=== PATIENT | male | born 1930 | race Caucasian/White ===

== ENCOUNTER → 2016-07-22 | Outpatient (CLI) | payer OTHER | LOC: FIMAGING 15:01 | PROVIDERS: ATTEND Internal Medicine | DX: Z09 Encounter for follow-up examination after completed treatment for conditions other than malignant neoplasm (principal); Z98.890 Other specified postprocedural states; J90 Pleural effusion, not elsewhere classified; I51.7 Cardiomegaly; J98.4 Other disorders of lung; I70.0 Atherosclerosis of aorta ==

== ENCOUNTER 2016-09-03 16:14 | Inpatient (IN) | payer OTHER ==
--- NOTE | 2016-09-03 16:37 | EDPHY ---
H & P Time Seen by Provider: 09/03/16 16:35 HPI/ROS: CHIEF COMPLAINT: Constipation HISTORY OF PRESENT ILLNESS: This patient is an 86 year old male who presents to the Emergency Department complaining that he has been unable to pass a bowel movement "for at least four days." He reports one episode of associated abdominal pain two nights prior to arrival, severe enough to wake him from sleep , which lasted for approximately one hour before subsiding on its own. Today, he has no gastrointestinal complaints apart from constipation. He also reports that he feels an abnormal sensation in his chest that he attributes to his history of atrial fibrillation. He states his legs are more swollen than usual. He denies lightheadedness, shortness of breath, headache, palpitations, or any additional complaints. Cardiac history also includes congestive heart failure, and coronary artery disease with previous CABG. He has been taking his metoprolol as prescribed. He was previously took Eliquis, Plavix, and Aspirin but was taken off of these due to excessive bleeding. He reports no anticoagulant use at this time. REVIEW OF SYSTEMS: Constitutional: No fever, no chills Eyes: No visual changes ENT: No sore throat Respiratory: No cough, no shortness of breath Cardiac: +Chest discomfort Gastrointestinal: +Constipation, +abdominal pain resolved, no nausea or vomiting Genitourinary: No hematuria, no dysuria Musculoskeletal: +bilateral leg swelling Skin: No rash Neurological: No headache, no numbness, no weakness Psychiatric: No depression Past Medical/Surgical History: CHF (3L O2 at home), atrial fibrillation, hypertension, CAD with prior CABG, hyperlipidemia, GERD, anxiety, depression. Followed by Dr. Carpenter, cardiology. Social History: Lives independently. Never smoked. . Smoking Status: Never smoked Physical Exam: General Appearance: Alert, no distress, on O2 4l by NC Eyes: Pupils equal and round, no conjunctival pallor or injection ENT, Mouth: Hearing impaired, mucous membranes moist Neck: Normal inspection Back: Ecchymosis Respiratory: Rales at the bases Cardiovascular: Irregularly irregular tachycardia Gastrointestinal: Abdomen is soft and non-tender Rectal: Minimal brown stool Neurological: A&O, nonfocal, normal gait Skin: Warm and dry, no rash Extremities: Nontender, 2+ pedal edema bilaterally Psychiatric: Mood and affect normal Constitutional: Initial Vital Signs Temperature (C) 36.4 C 09/03/16 16:21 Heart Rate 114 H 09/03/16 16:21 Respiratory Rate 16 09/03/16 16:21 Blood Pressure 102/83 H 09/03/16 16:21 O2 Sat (%) 92 09/03/16 16:21 O2 Delivery Mode Nasal Cannula O2 (L/minute) 3 Allergies/Adverse Reactions: acetaminophen [From Percocet] Allergy (Verified 09/24/15 10:04) amiodarone Allergy (Verified 10/24/15 21:01) Anaphylaxis hydrocodone bitartrate [From Vicodin] Allergy (Verified 09/24/15 10:04) oxycodone HCl [From Percocet] Allergy (Verified 09/24/15 10:04) Home Medications: Medication Instructions Recorded Cholecalciferol Vit D3 [Vitamin D3 2,000 units PO HS 09/03/16 (*)] Citalopram [CeleXA] 20 mg PO DAILY 09/03/16 Diltiazem HCl [Diltiazem 24Hr Cd] 180 mg PO HS 09/03/16 Furosemide [Lasix 80 MG (*)] 80 mg PO DAILY 09/03/16 Metoprolol Succinate Xr [Toprol Xl 50 mg PO DAILY 09/03/16 50 mg (*)] Multivitamins [Multivitamin (*)] 1 each PO DAILY 09/03/16 Simvastatin [Zocor] 20 mg PO HS 09/03/16 Spironolactone [Aldactone 25 MG 25 mg PO DAILY@1200 09/03/16 (*)] Medical Decision Making - Diagnostics Imaging Results: Imaging Impressions Chest X-Ray 09/03/16 16:54 Impression: Stable x2 months. ED Course/Re-evaluation: This 86 year old male complains of constipation over the past four days. He describes one episode of abdominal pain two nights ago but otherwise has not had any associated symptoms. On exam, he has no abd tenderness and minimal brown stool in the rectum. More concerning, he has rapid Afib, with a HR 120's. He has 2+ pedal edema bilaterally and increased SOB. He is regularly on 3L O2 at home and is 92% on 3L in the ED. RN will administer enema to treat the patient's constipation. 10mg IV Diltiazem administered for a fib. HR 100-110 after IV diltiazem. Diltiazem ip ordered. Labs obtained: NT-proBNP elevated at 4550 as compared to 2740 on 06/02/2016. c/w pulmonary edema.Lasix 40mg IV ordered. d/w pt's son. 1759: Consultation with Dr. Martin, hospitalist, who accepts admission. This patient utilized 35 minutes of critical care time exclusive of unbundled procedures. Differential Diagnosis: The differential diagnosis for the patient's constipation included but was not limited to medication side effect, idiopathic slow transit constipation, irritable bowel syndrome, or bowel obstruction. The differential diagnosis for the patient's chest discomfort included but was not limited to atrial fibrillation, myocardial ischemia, pleural inflammation, and pulmonary infectious causes. - Data Points Laboratory Results: Laboratory Results 09/03/16 16:55 09/03/16 16:55 09/03/16 09/03/16 16:55 16:55 WBC 8.03 10^3/uL 10^3/uL (3.80-9.50) RBC 4.21 10^6/uL L 10^6/uL (4.40-6.38) Hgb 13.5 g/dL L g/dL (13.7-17.5) Hct 41.1 % % (40.0-51.0) MCV 97.6 fL fL (81.5-99.8) MCH 32.1 pg pg (27.9-34.1) MCHC 32.8 g/dL g/dL (32.4-36.7) RDW 15.1 % % (11.5-15.2) Plt Count 193 10^3/uL 10^3/uL (150-400) MPV 9.9 fL fL (8.7-11.7) Neut % (Auto) 81.6 % H % (39.3-74.2) Lymph % (Auto) 6.8 % L % (15.0-45.0) [place]row % (Auto) 10.3 % % (4.5-13.0) Eos % (Auto) 0.4 % L % (0.6-7.6) Baso % (Auto) 0.5 % % (0.3-1.7) Nucleat RBC Rel Count 0.0 % % (0.0-0.2) Absolute Neuts (auto) 6.55 10^3/uL H 10^3/uL (1.70-6.50) Absolute Lymphs (auto) 0.55 10^3/uL L 10^3/uL (1.00-3.00) Absolute Monos (auto) 0.83 10^3/uL H 10^3/uL (0.30-0.80) Absolute Eos (auto) 0.03 10^3/uL 10^3/uL (0.03-0.40) Absolute Basos (auto) 0.04 10^3/uL 10^3/uL (0.02-0.10) Absolute Nucleated RBC 0.00 10^3/uL 10^3/uL (0-0.01) Immature Gran % 0.4 % % (0.0-1.1) Immature Gran # 0.03 10^3/uL 10^3/uL (0.00-0.10) Sodium 133 mEq/L L mEq/L (134-144) Potassium 4.9 mEq/L mEq/L (3.5-5.2) Chloride 93 mEq/L L mEq/L (97-110) Carbon Dioxide 26 mEq/l mEq/l (22-31) Anion Gap 14 mEq/L mEq/L (8-16) BUN 28 mg/dL H mg/dL (7-23) Creatinine 0.9 mg/dL mg/dL (0.7-1.3) Estimated GFR > 60 Glucose 91 mg/dL mg/dL (70-100) Calcium 9.2 mg/dL mg/dL (8.5-10.4) NT-Pro-B Natriuret Pep 4550 pg/mL H pg/mL (0-450) Medications Given: Discontinued Medications Diltiazem HCl (Cardizem 25 Mg/5 Ml Vial) 10 mg IVP EDNOW ONE Stop: 09/03/16 16:55 Last Admin: 09/03/16 17:24 Dose: 10 mg Diltiazem HCl 125 mg/ Dextrose 125 mls @ 0 mls/hr IV EDNOW ONE; As Directed PRN Reason: Protocol Stop: 09/03/16 17:54 Last Admin: 09/03/16 19:08 Dose: 125 mls Departure - Departure Disposition: [facility] Acute Clinical Impression: Rapid atrial fibrillation Pulmonary edema Qualifiers: Chronicity: acute Qualified Code(s): J81.0 - Acute pulmonary edema Report Scribed for: Tri Hunter Report Scribed by: Babs Matias Date of Report: 09/03/16 Time of Report: 16:37 Physician Review and Approval Statement: 09/03/16 16:37 Portions of this note were transcribed by a medical services assistant. I personally performed a history, physical exam, medical decision making, and confirmed accuracy of information the transcribed note.
[2016-09-03] MEDS ORDERED: DILTIAZEM 25 MG/5 ML VIAL IVP ONE (16:54)
[2016-09-03 17:11] LABS: % IMMATURE GRANULYOCYTES 0.4 % (0.0-1.1); ABSOLUTE IMMATURE GRANULOCYTES 0.03 10^3/uL (0.00-0.10); ADD DIFF? NO; ADD MORPH? NO; ADD SCAN? NO; ATYPICAL LYMPHOCYTE FLAG 10 (0-99); FRAGMENT RBC FLAG 0 (0-99); HEMATOCRIT 41.1 % (40.0-51.0); HEMOGLOBIN 13.5 g/dL (13.7-17.5); LEFT SHIFT FLG 0 (0-99); LIPEMIA HEMOLYSIS FLAG 80 (0-99); MEAN CELL HEMOGLOBIN 32.1 pg (27.9-34.1); MEAN CELL HEMOGLOBIN CONCENTR. 32.8 g/dL (32.4-36.7); MEAN CELL VOLUME 97.6 fL (81.5-99.8); MEAN PLATELET VOLUME 9.9 fL (8.7-11.7); PLATELET CLUMPS FLAG 10 (0-99); PLATELET COUNT 193 10^3/uL (150-400); RED BLOOD CELL COUNT 4.21 10^6/uL (4.40-6.38); RED CELL DISTRIBUTION WIDTH 15.1 % (11.5-15.2)
[2016-09-03 17:23] LABS: ANION GAP 14 mEq/L (8-16); CALCIUM 9.2 mg/dL (8.5-10.4); CARBON DIOXIDE 26 mEq/l (22-31); CHLORIDE 93 mEq/L (97-110); CREATININE 0.9 mg/dL (0.7-1.3); GLOMERULAR FILTRATION RATE > 60; GLUCOSE 91 mg/dL (70-100); POTASSIUM 4.9 mEq/L (3.5-5.2); SODIUM 133 mEq/L (134-144)
[2016-09-03] MEDS ORDERED: DILTIAZEM 125 MG in D5W 125 ML IV ONE (17:53)
[2016-09-03] MEDS ORDERED: FUROSEMIDE 40 MG/4 ML VIAL IVP ONE ×3 (18:44→22:00)
[2016-09-03] MEDS ORDERED: ONDANSETRON 4 MG/2 ML VIAL IVP PRN (20:52)
[2016-09-03] MEDS ORDERED: ACETAMINOPHEN 325 MG TAB PO PRN (20:52)
[2016-09-03] MEDS ORDERED: ZOLPIDEM TARTRATE 5 MG TAB PO PRN (20:52)
[2016-09-03] MEDS ORDERED: BISACODYL 10 MG SUPP PR PRN (20:55)
[2016-09-03] MEDS ORDERED: MAGNESIUM HYDROXIDE 30 ML UDCUP PO PRN (20:55)
[2016-09-03] MEDS ORDERED: LACTULOSE 20 GM/30 ML UDCUP PO PRN (20:55)
[2016-09-03] MEDS: SENNOSIDES/DOCUSATE SODIUM TAB PO SCH (22:02)
[2016-09-03] MEDS: ATORVASTATIN CALCIUM 10 MG TAB PO SCH (22:02)
[2016-09-03] MEDS: DILTIAZEM CD 180 MG CAP PO SCH (22:03)
[2016-09-03] MEDS: CHOLECALCIFEROL VIT D3 2,000 UNITS TAB/CAP PO SCH (22:03)
--- NOTE | 2016-09-03 22:58 | PDGENHP ---
History and Physical History and Physical: HISTORY AND PHYSICAL CC:Atrial fibrillation HISTORY: This patient comes into the ER with a complaint of feeling like his atrial fibrillation has started up again. He also is complaining of feeling constipated and bloated in the abdomen. He has no chest pain or angina-like symptoms, does admit to some shortness of breath and leg swelling. He has been taking all his medicines. He has not been sticking to a low-salt diet. He had sees Dr. Carpenter but has not seen him for some time. The son feels that Dr. Jackson said there is little else that can be done for the patient's heart. ROS: A comprehensive 10 system review revealed no other significant findings PAST MEDICAL HISTORY: Atrial fibrillation on Eliquis Coronary artery bypass surgery Hyperlipidemia Pulmonary hypertension Chronic kidney disease Chronic hyponatremia Left atrial appendage thrombus Diastolic CHF Gait instability Peripheral neuropathy Lumbar fusion surgery Carotid endarterectomy Elbow surgery FAMILY MEDICAL HISTORY: both parents , no other significant illness in the family SOCIAL HISTORY: Lives at the [facility]. His son is at the bedside here with an. No tobacco use at this time MEDICATIONS: The patients list has been reconciled by our clinical pharmacist in the EMR. I have reviewed the list and ordered appropriate medicines. PHYSICAL EXAMINATION: Vital Signs: pulse between 95 and 105 occasions 110 and irregular, otherwise stable without fever Dog Boarder: atrial fibrillation with an average rate of approximately 110 Examination: General: alert, oriented, good mentation, relaxed Skin: warm, dry, good color, no rash HEENT: normal Neck: no mass but jugular venous distention is present Resps: relaxed Lungs: a few bibasilar rales Heart: irregular, no murmur Abdomen: soft, mildly distended, nontender, +BS, no mass Upper Extremities: normal Lower Extremities: marked pitting edema from the knees marked pitting edema from the knees to the feet No Bleeding or bruising Neurologic: normal speech/language, 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, no focal weakness IV site: looks normal LABORATORY DATA: BUN up at 28 BNP at 4550 Creatinine stable Troponin normal RADIOLOGY STUDIES: Chest x-ray done in the ER, my personal reading and interpretation of the image : Acute congestive heart failure ASSESSMENT: # ACUTE CONGESTIVE HEART FAILURE UNCERTAIN WHAT SYSTOLIC FUNCTION IS AT THIS TIME # ATRIAL FIBRILLATION WITH AT THE MOMENT MILDLY ELEVATED HEART RATE # HISTORY OF BYPASS SURGERY BUT NO CURRENT ANGINA ; EKG NOT DONE IN THE ER BUT TROPONIN NORMAL # POOR COMPLIANCE WITH LOW-SALT DIET # CHRONIC KIDNEY DISEASE # CONSTIPATION WHICH COULD BE CAUSED BY GUT EDEMA FROM HIS HEART FAILURE PLANS: - admission hospital -Diuretic with IV Lasix -Monitor very closely for his rate control, continue his current beta and calcium blockers orally -Echocardiogram is he does not appear to have had 1 for some time I have reviewed the patient's case in detail with Dr. lauren Hunter I have reviewed the patient's past medical records as part of this assessment, including previous hospital admission records
[2016-09-04 04:31] LABS: % IMMATURE GRANULYOCYTES 0.6 % (0.0-1.1); ABSOLUTE IMMATURE GRANULOCYTES 0.04 10^3/uL (0.00-0.10); ADD DIFF? NO; ADD MORPH? NO; ADD SCAN? NO; ATYPICAL LYMPHOCYTE FLAG 0 (0-99); FRAGMENT RBC FLAG 0 (0-99); HEMATOCRIT 36.1 % (40.0-51.0); HEMOGLOBIN 12.3 g/dL (13.7-17.5); LEFT SHIFT FLG 0 (0-99); LIPEMIA HEMOLYSIS FLAG 90 (0-99); MEAN CELL HEMOGLOBIN 32.9 pg (27.9-34.1); MEAN CELL HEMOGLOBIN CONCENTR. 34.1 g/dL (32.4-36.7); MEAN CELL VOLUME 96.5 fL (81.5-99.8); MEAN PLATELET VOLUME 9.7 fL (8.7-11.7); PLATELET CLUMPS FLAG 0 (0-99); PLATELET COUNT 178 10^3/uL (150-400); RED BLOOD CELL COUNT 3.74 10^6/uL (4.40-6.38); RED CELL DISTRIBUTION WIDTH 14.9 % (11.5-15.2)
[2016-09-04 04:50] LABS: ANION GAP 9 mEq/L (8-16); CALCIUM 8.6 mg/dL (8.5-10.4); CARBON DIOXIDE 28 mEq/l (22-31); CHLORIDE 95 mEq/L (97-110); CREATININE 0.8 mg/dL (0.7-1.3); GLOMERULAR FILTRATION RATE > 60; GLUCOSE 75 mg/dL (70-100); MAGNESIUM 1.7 mg/dL (1.6-2.3); POTASSIUM 3.8 mEq/L (3.5-5.2); SODIUM 132 mEq/L (134-144)
[2016-09-04] MEDS ORDERED: FUROSEMIDE 100 MG/10 ML VIAL IVP SCH (08:00)
[2016-09-04] MEDS: POLYETHYLENE GLYCOL 3350 17 GM PKT PO PRN (10:09)
[2016-09-04] MEDS: MULTIVITAMINS 1 EACH TAB PO SCH (10:10)
[2016-09-04] MEDS: SENNOSIDES/DOCUSATE SODIUM TAB PO SCH (10:10)
[2016-09-04] MEDS: ENOXAPARIN 40 MG/0.4 ML SYR SC SCH (10:11)
[2016-09-04] MEDS: METOPROLOL SUCCINATE XR 50 MG TAB PO SCH (10:11)
[2016-09-04] MEDS: CITALOPRAM 20 MG TAB PO SCH (10:11)
[2016-09-04] MEDS: SPIRONOLACTONE 25 MG TAB PO SCH (12:30)
--- NOTE | 2016-09-04 13:28 | ECHO ---
[id number] + + [address] : : [place] [address] : : [phone] + + Adult Echocardiographic Report + ---------+ :Name: SINA PAREDES JStudy Date: 09/04/2016 08:01 AM : : Hospital Admission Number: [id number] Nannette crystal: 204: :: 1930 Gender: Male Height: 66 i n : :Age: 86 yrs Race: WH Weight: 175 lb : :Reason For Study: Acute CHF : : BSA: 1.9 met ers2 : + ---------+ MMode/2D Measurements \T\ Calculations IVSd: 0.81 cm LVIDd: 4.4 cm FS: 28.7 % LA dimension: LVPWd: 1.1 cm LVIDs: 3.1 cm EDV(Teich): 85.7 ml 4.6 cm ESV(Teich): 38.0 ml EF(Teich): 55.6 % LVOT diam: 1.7 cmLVLd ap4: 7.1 cm SV(MOD-sp4): LVOT area: EDV(MOD-sp4): 27.0 ml 2.3 cm2 46.0 ml LVLs ap4: 6.2 cm ESV(MOD-sp4): 19.0 ml EF(MOD-sp4): 58.7 % Normal Measurement Values: + + :LVIDd (3.5-5.7cm) IVSd (0.6-1.1cm) LVPWd (0.6-1.1cm) Aortic Root (2.0-3.7cm)Left Atrium (1.5-4.0cm): :LV Vol(d) (76-115ml) LV Vol(s) (29-48ml) Ejec Fraction (50-65%)PV Ash (0.6- 1.2m/s) TV Ash (0.4-1.0m/s) : :MV E Ash (0.8-1.0m/s)MV A Ash (0.3-1.0m/s)LVOT Ash (0.7-1.2m/s) Asc Ao Ash ( 0.9-1.8m/s) : + + Doppler Measurements \T\ Calculations MV E max ash: MV V2 mean: Ao mean PG: AI max ash: 156.3 cm/sec 87.0 cm/sec 21.5 mmHg 377.2 cm/sec MV mean PG: Ao V2 mean: AI max P.9 mmHg 4.0 mmHg 220.7 cm/sec AI dec slope: MV V2 VTI: Ao V2 VTI: 62.9 cm 233.6 cm/sec2 30.6 cm JESI(I,D): 0.53 cm2 AI P1/2t: 473.1 msec MVA(VTI): 1.1 cm2 LV V1 max: SV(LVOT): 33.4 mlTR max ash: 69.1 cm/sec 329.8 cm/sec LV V1 max PG: TR max P.9 mmHg 43.5 mmHg LV V1 mean PG: RAP systole: 0.96 mmHg 10.0 mmHg LV V1 mean: RVSP(TR): 44.7 cm/sec 53.5 mmHg LV V1 VTI: 14.8 cm Left Ventricle The left ventricle is normal in size. There is normal left ventricular wall thickness. Left ventricular systolic function is normal. Ejection Fraction = 60-65%. There is Doppler evidence for diastolic dysfunction. No regional wall motion abnormalities noted. Right Ventricle The right ventricle is normal in size and function. Atria The left atrium is severely dilated. The right atrium is mildly dilated. The interatrial septum is intact with no evidence for an atrial septal defect. Mitral Valve Calcified mitral apparatus. There is no evidence of mitral valve prolapse. There is no mitral valve stenosis. Moderate mitral regurgitation (multiple jets). Tricuspid Valve Normal tricuspid valve. There is moderate tricuspid regurgitation. Right ventricular systolic pressure is 54mmHg. There is Doppler evidence for mild pulmonary hypertension. Aortic Valve There is severe aortic valve calcification. Mild valvular aortic stenosis. AV max PG is 34 mmHG. AV mean PG is 22 mmHG. Mild to moderate aortic regurgitation. Pulmonic Valve The pulmonic valve is normal in structure and function. Mild pulmonic valvular regurgitation. Great Vessels The aortic root is normal size. Mildly dilated ascending aorta. Pericardium/Pleural There is no pericardial effusion. Left pleural effusion. Conclusion A complete two-dimensional transthoracic echocardiogram was performed (2D, M-mode, Doppler and color flow Doppler). Compared to the echo of 11/08, the amount of mitral regurgitation has increased. Left ventricular systolic function is normal. Ejection Fraction = 60-65%. There is Doppler evidence for diastolic dysfunction. The left atrium is severely dilated. The right atrium is mildly dilated. Calcified mitral apparatus. Moderate mitral regurgitation (multiple jets). There is moderate tricuspid regurgitation. Right ventricular systolic pressure is 54mmHg. There is Doppler evidence for mild pulmonary hypertension. There is severe aortic valve calcification. Mild valvular aortic stenosis. AV max PG is 34 mmHG. AV mean PG is 22 mmHG. Mild to moderate aortic regurgitation. Mild pulmonic valvular regurgitation. Left pleural effusion. Mildly dilated ascending aorta. Final Reading Physician: Dr Rylie Carmichael electronically signed on 09/04/2016 01:27 PM Ordering Physician: Didier Martin Performed By: Maria M Luke, LILIAN
--- NOTE | 2016-09-04 13:45 | HOSPPROG ---
Hospitalist Progress Note Assessment/Plan: # ACUTE DIASTOLIC CONGESTIVE HEART FAILURE # ATRIAL FIBRILLATION (improved rate control) # HISTORY OF BYPASS SURGERY BUT NO CURRENT ANGINA ; EKG NOT DONE IN THE ER BUT TROPONIN NORMAL # POOR COMPLIANCE WITH LOW-SALT DIET # CHRONIC KIDNEY DISEASE # CONSTIPATION (persistent) PLANS: -decrese iv lasix to 40mg iv qday -cont with bowel protocol dispo: continue inpatient care due to persistent constipation and sob Subjective: continues to have shortness of breath. does not feel much better today. still without BM Objective: Vital Signs Temp Pulse Resp BP Pulse Ox 36.9 C 98 20 101/71 93 09/04/16 12:15 09/04/16 12:15 09/04/16 12:15 09/04/16 12:15 09/04/16 12:15 Laboratory Results 09/04/16 03:58 09/04/16 03:58 09/03/16 09/04/16 09/05/16 05:59 05:59 05:59 Intake Total 100 Output Total 2650 900 Balance -2550 -900 - Physical Exam Constitutional: no apparent distress, appears nourished, not in pain Cardiovascular: systolic murmur, irregularly irregular, edema, No tachycardia Respiratory: no respiratory distress, no rales or rhonchi, clear to auscultation , reduced air movement Gastrointestinal: normoactive bowel sounds, distension, No tenderness, No guarding, No rebound Skin: no rashes or abrasions, no fluctuance, no induration Neurologic: CN II-XII Intact, No facial droop ICD10 Worksheet Patient Problems: Problems Problem Status Onset Chronic Disease Mgmt/Transitional Care Acute A-fib Acute Failure to thrive Acute Anxiety Acute Anticoagulated Acute GI bleed Acute Anemia Acute Rapid atrial fibrillation Acute Pulmonary edema Acute
--- NOTE | 2016-09-04 15:06 | CPEKG ---
Heart Rate: 107 RR Interval: 561 QRSD Interval: 84 QT Interval: 372 QTC Interval: 497 QRS [place]: 101 T Wave [place]: -3 EKG Severity - ABNORMAL ECG - EKG Impression: ATRIAL FIBRILLATION EKG Impression: BORDERLINE RIGHT AXIS DEVIATION EKG Impression: BORDERLINE T ABNORMALITIES, INFERIOR LEADS EKG Impression: PROLONGED QT INTERVAL Electronically Signed By: Ganesh Perry 04-Sep-2016 16:29:58
[2016-09-04] MEDS ORDERED: CEPACOL LOZENGE PO ONE (16:33)
[2016-09-04] MEDS: ATORVASTATIN CALCIUM 10 MG TAB PO SCH (21:13)
[2016-09-04] MEDS: DILTIAZEM CD 180 MG CAP PO SCH (21:13)
[2016-09-04] MEDS: CHOLECALCIFEROL VIT D3 2,000 UNITS TAB/CAP PO SCH (21:13)
[2016-09-05] MEDS: SENNOSIDES/DOCUSATE SODIUM TAB PO SCH ×3 (00:38→20:36)
[2016-09-05 05:05] LABS: ANION GAP 8 mEq/L (8-16); CALCIUM 8.3 mg/dL (8.5-10.4); CARBON DIOXIDE 31 mEq/l (22-31); CHLORIDE 93 mEq/L (97-110); CREATININE 0.9 mg/dL (0.7-1.3); GLOMERULAR FILTRATION RATE > 60; GLUCOSE 80 mg/dL (70-100); POTASSIUM 3.7 mEq/L (3.5-5.2); SODIUM 132 mEq/L (134-144)
[2016-09-05] MEDS ORDERED: FUROSEMIDE 100 MG/10 ML VIAL IVP SCH ×2 (09:00→15:00)
[2016-09-05] MEDS: ENOXAPARIN 40 MG/0.4 ML SYR SC SCH (09:46)
[2016-09-05] MEDS: MULTIVITAMINS 1 EACH TAB PO SCH (09:47)
[2016-09-05] MEDS: CITALOPRAM 20 MG TAB PO SCH (09:47)
[2016-09-05] MEDS: METOPROLOL SUCCINATE XR 50 MG TAB PO SCH (09:47)
--- NOTE | 2016-09-05 09:49 | HOSPPROG ---
Hospitalist Progress Note Assessment/Plan: # ACUTE DIASTOLIC CONGESTIVE HEART FAILURE with worsening MR on echo # ATRIAL FIBRILLATION (improved rate control) # HISTORY OF BYPASS SURGERY BUT NO CURRENT ANGINA ; EKG NOT DONE IN THE ER BUT TROPONIN NORMAL # POOR COMPLIANCE WITH LOW-SALT DIET # CHRONIC KIDNEY DISEASE # CONSTIPATION (resolved) PLANS: -cont lasix 80mg bid -cont with bowel protocol -I discussed the case with Dr. Yusuf who will see the patient in consult dispo: continue inpatient care due to persistent sob with rales on exam Subjective: had bm yesterday with improved abd distension. still with sob. no chest pain Objective: Vital Signs Temp Pulse Resp BP Pulse Ox 36.6 C 87 18 101/69 99 09/05/16 08:00 09/05/16 08:00 09/05/16 08:00 09/05/16 08:00 09/05/16 08:00 Laboratory Results 09/04/16 03:58 09/05/16 03:46 09/04/16 09/05/16 09/06/16 05:59 05:59 05:59 Intake Total 100 400 Output Total 2650 1980 Balance -2550 -1580 - Physical Exam Constitutional: no apparent distress, appears nourished, not in pain Cardiovascular: regular rate and rhythym, irregularly irregular, edema ( improving in bilat legs) Respiratory: no respiratory distress, reduced air movement, inspiratory crackles , No expiratory wheeze Gastrointestinal: normoactive bowel sounds, soft, non-tender abdomen, no palpable masses, No guarding, No rebound Genitourinary: no bladder fullness, no bladder tenderness, no renal bruits ICD10 Worksheet Patient Problems: Problems Problem Status Onset Chronic Disease Mgmt/Transitional Care Acute A-fib Acute Failure to thrive Acute Anxiety Acute Anticoagulated Acute GI bleed Acute Anemia Acute Rapid atrial fibrillation Acute Pulmonary edema Acute
[2016-09-05] MEDS: POLYETHYLENE GLYCOL 3350 17 GM PKT PO PRN (11:09)
--- NOTE | 2016-09-05 11:48 | PDCARPN ---
Cardiology Progress Note Chief Complaint: Constipation Assessment/Plan: Assessment: Patient is an 86 y/o male, well known to [facility] (Dr. Ward Carpenter) with history of chronic atrial fibrillation (not on anticoagulation given fall risk with [id number] score of 4), CHF (normal LVEF by echo), CAD s/p CABG, HTN, HLP , valvular heart disease (mod MR, TR, and AI), and GERD, who presented to [facility] ER with complaints of constipation. On telemetry, the patient's heart rate was irregular and tachycardic at the time of admission. No complaints of chest pains or pressure. No PND or orthopnea were voiced. Compliance with medical therapy has been good. Outpatient office note from Dr. Ward Carpenter from February [address] Mahesh Velazquez from June 2016 were reviewed today. The patient has not been on anticoagulation for some time given fall risk (and bleeding). Today, the patient is feeling much better after a combination of (a) having a bowel movement, and (b) diuresis. No chest pains or pressure. No shortness of breath, PND, or orthopnea. No fevers or chills. Weight has dropped about 4 kg since admission. In the ER, the patient was noted to have lower extremity swelling and mild dyspnea, but today, both these complaints have resolved. Plan: (1) Would continue therapy on statins for history of HLP (2) Toprol and Cardizem should continue for HTN history - would monitor heart rates given possible reduction of rates on both these therapies (3) Aldactone should continue for assistance with fluid management in setting of CHF with CAD - further diuresis with lasix (currently IV, but could be switched back to PO) (4) Lovenox to continue with CVA risk (atrial fibrillation). (5) Would consider the reintroduction of low dose ASA therapy given CAD/CABG history (6) Heart rates are controlled at present - patient is not a candidate for cardioversion given inability to have retirement anticoagulation and high likelihood for revisitation of the arrhythmia - suspect that as the GI issues are resolved, the heart rate is better controlled (7) Would consider input from GI given the diarrhea/constipation and reports of "thirty pound" weight loss (8) Patient is not a surgical candidate for valve pathology noted given age and multitude of other comorbidities. (risk>>benefit) Subjective: No cardiovascular complaints at present. Reviewed/Discussed With: hospitalist, multidisciplinary team Time Spent With Patient: 25 minutes Objective: Vital Signs (8 Hrs) Temp Pulse Resp BP Pulse Ox 09/05/16 08:00 36.6 C 87 18 101/69 99 09/05/16 04:00 37 C 91 17 98/56 L 99 Intake/Output (24 Hrs) 09/04/16 09/05/16 09/06/16 05:59 05:59 05:59 Intake Total 100 400 Output Total 2650 1979 Balance -2550 -1580 Intake: Oral (ml) 100 400 Output: Urine (ml) 2650 1979 Catheter 1999 1979 Urinal 250 Other: Weight 72.2 kg 68.2 kg Intake Quantity Yes Sufficient Number of Stools Bedpan 1 Result Diagrams: 09/04/16 03:58 09/05/16 03:46 Cardiac Labs: Cardiac Lab Results (72 Hrs) 09/03/16 21:10 Troponin I < 0.012 Telemetry: atrial fibrillation with controlled ventricular response Echocardiogram: normal LVEF, mod MR, TR, and AI noted. RVSP of 50-55 mm Hg - Physical Exam Constitutional: WDWN, healthy appearing, no apparent distress Eyes: PERRL Ears, Nose, Mouth, Throat: moist mucous membranes Cardiovascular: systolic murmur, irregularly irregular, pulses symmetric bilat, No jugular vein distention Peripheral Pulses: 2+: dorsalis-pedis (R), dorsalis-pedis (L) Respiratory: reduced air movement, inspiratory crackles, dullness to percussion (right >left) Gastrointestinal: normoactive bowel sounds, no tenderness Skin: no rashes, no edema Musculoskeletal: no muscular tenderness Neurologic: AAOx3, CN II-XII grossly intact Psychiatric: cooperative, interactive, following commands ICD10 Worksheet Patient Problems: Problems Problem Status Onset Chronic Disease Mgmt/Transitional Care Acute Pulmonary edema Acute Rapid atrial fibrillation Acute A-fib Acute Anemia Acute Anticoagulated Acute Anxiety Acute Failure to thrive Acute GI bleed Acute
[2016-09-05] MEDS: FUROSEMIDE 80 MG in D5W 50 ML IV SCH (16:08)
[2016-09-05] MEDS: SPIRONOLACTONE 25 MG TAB PO SCH (16:08)
[2016-09-05] MEDS: CHOLECALCIFEROL VIT D3 2,000 UNITS TAB/CAP PO SCH (20:36)
[2016-09-05] MEDS: DILTIAZEM CD 180 MG CAP PO SCH (20:36)
[2016-09-05] MEDS: ATORVASTATIN CALCIUM 10 MG TAB PO SCH (20:36)
[2016-09-06 04:44] LABS: ANION GAP 9 mEq/L (8-16); CALCIUM 8.4 mg/dL (8.5-10.4); CARBON DIOXIDE 30 mEq/l (22-31); CHLORIDE 94 mEq/L (97-110); CREATININE 0.9 mg/dL (0.7-1.3); GLOMERULAR FILTRATION RATE > 60; GLUCOSE 94 mg/dL (70-100); POTASSIUM 4.1 mEq/L (3.5-5.2); SODIUM 133 mEq/L (134-144)
--- NOTE | 2016-09-06 10:04 | PDCARPN ---
Cardiology Progress Note Chief Complaint: No complaints this morning Assessment/Plan: Assessment: 09-06-16 No cardiovascular complaints this morning. Patient with good sleep overnight. Ongoing rate control of historical atrial fibrillation. Mild, somewhat progressive anemia noted by labs. Stool was negative for OB. Patient is down about 6 kg since admission. 09-05-16 Patient is an 86 y/o male, well known to [facility] (Dr. Ward Carpenter) with history of chronic atrial fibrillation (not on anticoagulation given fall risk with [id number] score of 4), CHF (normal LVEF by echo), CAD s/p CABG, HTN, HLP , valvular heart disease (mod MR, TR, and AI), and GERD, who presented to [facility] ER with complaints of constipation. On telemetry, the patient's heart rate was irregular and tachycardic at the time of admission. No complaints of chest pains or pressure. No PND or orthopnea were voiced. Compliance with medical therapy has been good. Outpatient office note from Dr. Ward Carpenter from February [address] Mahesh Velazquez from June 2016 were reviewed today. The patient has not been on anticoagulation for some time given fall risk (and bleeding). Today, the patient is feeling much better after a combination of (a) having a bowel movement, and (b) diuresis. No chest pains or pressure. No shortness of breath, PND, or orthopnea. No fevers or chills. Weight has dropped about 4 kg since admission. In the ER, the patient was noted to have lower extremity swelling and mild dyspnea, but today, both these complaints have resolved. Plan: (1) Toprol/Cardizem to continue for assistance with management of HTN (2) Statins for HLP to continue (3) Aldactone preferred for assistance with fluid management in this patient ( for [facility]) - would reassess the patient's BNP to determine what levels have been achieved with med management AND new "baseline" prior to discharge (4) ASA therapy should be resumed given the CAD/CABG history (5) Suspect that GI issues led to the accelerated heart rates noted with the atrial fibrillation (6) Cardiology will continue to follow this patient Subjective: No complaints were voiced this morning Reviewed/Discussed With: multidisciplinary team Time Spent With Patient: 15 minutes Objective: Vital Signs (8 Hrs) Temp Pulse Resp BP Pulse Ox 09/06/16 07:57 36.9 C 90 18 96/66 L 96 09/06/16 04:00 36.6 C 92 20 106/71 95 Intake/Output (24 Hrs) 09/05/16 09/06/16 09/07/16 05:59 05:59 05:59 Intake Total 400 895 Output Total 1979 750 Balance -1580 145 Intake: Oral (ml) 400 895 Output: Urine (ml) 1979 750 Catheter 1979 300 Urinal 450 Other: Weight 68.2 kg 66.7 kg Number of Stools Bedpan 1 Result Diagrams: 09/04/16 03:58 09/06/16 03:38 Cardiac Labs: Cardiac Lab Results (72 Hrs) 09/03/16 21:10 Troponin I < 0.012 Telemetry: Atrial fibrillation with controlled ventricular response - Physical Exam Constitutional: WDWN, healthy appearing, no apparent distress Eyes: PERRL, EOMI Ears, Nose, Mouth, Throat: moist mucous membranes Cardiovascular: systolic murmur, irregularly irregular, No jugular vein distention Peripheral Pulses: 2+: dorsalis-pedis (R), dorsalis-pedis (L) Respiratory: no wheezes, inspiratory crackles Gastrointestinal: normoactive bowel sounds Skin: no rashes, no edema Musculoskeletal: no muscular tenderness Neurologic: AAOx3, CN II-XII grossly intact Psychiatric: cooperative, interactive, following commands ICD10 Worksheet Patient Problems: Problems Problem Status Onset Chronic Disease [facility]/Transitional Care Acute Pulmonary edema Acute Rapid atrial fibrillation Acute A-fib Acute Anemia Acute Anticoagulated Acute Anxiety Acute Failure to thrive Acute GI bleed Acute
[2016-09-06] MEDS: FUROSEMIDE 80 MG in D5W 50 ML IV SCH ×2 (10:53→17:20)
[2016-09-06] MEDS: CITALOPRAM 20 MG TAB PO SCH (10:53)
[2016-09-06] MEDS: METOPROLOL SUCCINATE XR 50 MG TAB PO SCH (10:53)
[2016-09-06] MEDS: POLYETHYLENE GLYCOL 3350 17 GM PKT PO PRN (10:53)
[2016-09-06] MEDS: ENOXAPARIN 40 MG/0.4 ML SYR SC SCH (10:53)
[2016-09-06] MEDS: MULTIVITAMINS 1 EACH TAB PO SCH (10:54)
[2016-09-06] MEDS: SENNOSIDES/DOCUSATE SODIUM TAB PO SCH (10:54)
--- NOTE | 2016-09-06 12:06 | HOSPPROG ---
Hospitalist Progress Note Assessment/Plan: # ACUTE DIASTOLIC CONGESTIVE HEART FAILURE with worsening MR on echo # ATRIAL FIBRILLATION (improved rate control) # HISTORY OF BYPASS SURGERY BUT NO CURRENT ANGINA ; EKG NOT DONE IN THE ER BUT TROPONIN NORMAL # POOR COMPLIANCE WITH LOW-SALT DIET # CHRONIC KIDNEY DISEASE # CONSTIPATION (resolved) PLANS: -cont lasix 80mg bid -cont with bowel protocol dispo: continue inpatient care with IV lasix care to persistent sob with rales on exam Subjective: still weak and short of breath. doesn't feel strong enough to return home. no chest pain. no fever or chills Objective: Vital Signs Temp Pulse Resp BP Pulse Ox 36.9 C 90 18 96/66 L 96 09/06/16 07:57 09/06/16 07:57 09/06/16 07:57 09/06/16 07:57 09/06/16 07:57 Laboratory Results 09/04/16 03:58 09/06/16 03:38 09/05/16 09/06/16 09/07/16 05:59 05:59 05:59 Intake Total 400 895 Output Total 1980 750 Balance -1580 145 - Physical Exam Constitutional: no apparent distress, appears nourished, not in pain Ears, Nose, Mouth, Throat: moist mucous membranes, hearing normal, ears appear normal, no oral mucosal ulcers Cardiovascular: regular rate and rhythym, no murmur, rub, or gallop, No edema Respiratory: no respiratory distress, reduced air movement, inspiratory crackles , No rhonchi Gastrointestinal: normoactive bowel sounds, soft, non-tender abdomen, no palpable masses Skin: no rashes or abrasions, no fluctuance, no induration ICD10 Worksheet Patient Problems: Problems Problem Status Onset Chronic Disease Mgmt/Transitional Care Acute A-fib Acute Failure to thrive Acute Anxiety Acute Anticoagulated Acute GI bleed Acute Anemia Acute Rapid atrial fibrillation Acute Pulmonary edema Acute
[2016-09-06] MEDS: SPIRONOLACTONE 25 MG TAB PO SCH (13:16)
[2016-09-06] MEDS ORDERED: ASPIRIN 81 MG CHEWABLE TAB ONE (13:17)
[2016-09-06] MEDS: ASPIRIN EC 81 MG TAB PO SCH (13:17)
[2016-09-06] MEDS ORDERED: SENNOSIDES/DOCUSATE SODIUM TAB PO PRN (17:45)
[2016-09-06] MEDS: ATORVASTATIN CALCIUM 10 MG TAB PO SCH (19:52)
[2016-09-06] MEDS: CHOLECALCIFEROL VIT D3 2,000 UNITS TAB/CAP PO SCH (19:52)
[2016-09-06] MEDS: DILTIAZEM CD 180 MG CAP PO SCH (19:52)
[2016-09-07 04:17] LABS: ANION GAP 9 mEq/L (8-16); CALCIUM 8.6 mg/dL (8.5-10.4); CARBON DIOXIDE 32 mEq/l (22-31); CHLORIDE 92 mEq/L (97-110); GLOMERULAR FILTRATION RATE > 60; GLUCOSE 94 mg/dL (70-100); POTASSIUM 4.1 mEq/L (3.5-5.2); SODIUM 133 mEq/L (134-144)
[2016-09-07] MEDS: ASPIRIN EC 81 MG TAB PO SCH (09:56)
[2016-09-07] MEDS: ENOXAPARIN 40 MG/0.4 ML SYR SC SCH (09:56)
[2016-09-07] MEDS: FUROSEMIDE 80 MG in D5W 50 ML IV SCH ×2 (09:56→15:29)
[2016-09-07] MEDS: MULTIVITAMINS 1 EACH TAB PO SCH (09:56)
[2016-09-07] MEDS: CITALOPRAM 20 MG TAB PO SCH (09:56)
[2016-09-07] MEDS: METOPROLOL SUCCINATE XR 50 MG TAB PO SCH (09:56)
--- NOTE | 2016-09-07 11:01 | PDIAF ---
- Diagnosis Diagnosis: acute diastolic heart failure Code Status: Full Code - Medication Management Discharge Medications: Medications to Continue on Transfer Cholecalciferol Vit D3 [Vitamin D3 (*)] 2,000 units PO HS 09/03/16 [Last Taken 09/02/16] Citalopram [CeleXA 20 MG] 20 mg PO DAILY 09/03/16 [Last Taken 09/02/16] Diltiazem HCl [Diltiazem 24Hr Cd] 180 mg PO HS 09/03/16 [Last Taken 09/02/16] Furosemide [Lasix 80 MG (*)] 80 mg PO DAILY 09/03/16 [Last Taken 09/03/16] Metoprolol Succinate Xr [Toprol Xl 50 mg (*)] 50 mg PO DAILY 09/03/16 [Last Taken 09/03/16] Multivitamins [Multivitamin (*)] 1 each PO DAILY 09/03/16 [Last Taken Unknown] Simvastatin [Zocor] 20 mg PO HS 09/03/16 [Last Taken 09/02/16] Spironolactone [Aldactone 25 MG (*)] 25 mg PO DAILY@1200 09/03/16 [Last Taken ] Aspirin EC [Aspirin EC 81 mg (*)] 81 mg PO DAILY #0 tab 09/07/16 [Last Taken Unknown] Polyethylene Glycol 3350 [Miralax 17 gm (*)] 17 gm PO DAILY PRN #0 pkt 09/07/16 [Last Taken Unknown] Sennosides/Docusate Sodium [Senokot-S] 1 tab PO BID PRN #0 tab 09/07/16 [Last Taken Unknown] Discharge Medications: Refer to the Discharge Home Medication list for PRN reason. - Orders Services needed: Home Care, Registered Nurse, Physical Therapy, Occupational Therapy Home Care Face to Face: I certify that this patient was under my care and that I had the required [id number] encounter meeting the encounter requirements on the discharge day. My findings support the fact that the patient is homebound as defined in CMS Chapter 7 Medicare Benefits Manual 30.1.1, The condition of the patient is such that there exists a normal inability to leave home and consequently, leaving home would require a considerable and taxing effort. Diet Recommendation: sodium restricted Diet Texture: Regular Texture Diet - Follow Up Care Current Providers and Referrals: Angelo Fields MD [Medical Doctor] - Jose Manuel Byrne MD [Primary Care Provider] - As per Instructions Je Carpenter MD [Medical Doctor] - As per Instructions
--- NOTE | 2016-09-07 11:29 | GDS ---
[f rep st] DISCHARGE SUMMARY DISCHARGE DIAGNOSES: 1. Acute diastolic congestive heart failure with worsening mitral regurgitation on echo. 2. Rate controlled atrial fibrillation. 3. History of coronary artery disease, status post coronary artery bypass graft. 4. Poor compliance with low-sodium diet. 5. Chronic kidney disease. 6. Resolved constipation. CONSULTANTS: [facility]. HOSPITAL COURSE: Acute on chronic diastolic heart failure with worsening mitral regurgitation. The patient was admitted to the hospital with volume overload. An echocardiogram done on 09/04/2016 revealed an ejection fraction of 60% to 65% with worsening mitral regurgitation. He has been treated with high-dose IV diuretics with good results. His weight has gone down 9 kg from admission. On day of discharge, the patient is feeling better but continues to feel weak. He denies any chest pain. His shortness of breath is better but is still requiring oxygen. PHYSICAL EXAM: VITAL SIGNS: On day of discharge, blood pressure 95/54, pulse of 95, respiratory rate 20, O2 saturation 93% on 1 L, temperature afebrile. GENERAL: No acute distress. HEART: S1, S2. Lungs with improved rales. ABDOMEN: Soft. EXTREMITIES: No edema. PERTINENT LABS AND STUDIES: Echocardiogram done 09/04/2016, refer to report. DISCHARGE MEDICATIONS: Please refer to discharge medication reconciliation in [facility] for details. DISCHARGE INSTRUCTIONS: The patient will be discharged back to [facility] with home care. He will need close monitoring of his daily weights. He should follow up with Cardiology in 1-2 weeks for routine hospital followup as well as with his primary care provider. It is imperative that he remain on a low- sodium diet since this was thought to likely be the culprit for his decompensation of heart failure. /[id number]/MODL MTDD
[2016-09-07] MEDS: SPIRONOLACTONE 25 MG TAB PO SCH (12:24)
--- NOTE | 2016-09-07 14:39 | PDCARPN ---
Cardiology Progress Note Chief Complaint: Patient and son report that there continues to be some issue with constipation. Son also felt that the patient had continued "fluid in the lungs" Assessment/Plan: Assessment: 09-07-16 Patient without lashaun cardiovascular complaints voiced today. Per son, there were issues overnight with constipation. Heart rates continue to be irregular ( consistent with diagnosis of atrial fibrillation), but controlled. Weights continue to be down from admission, but not in comparison to yesterday. Son, on phone, voiced concerns about discharge of the patient to home with continues GI issues. 09-06-16 No cardiovascular complaints this morning. Patient with good sleep overnight. Ongoing rate control of historical atrial fibrillation. Mild, somewhat progressive anemia noted by labs. Stool was negative for OB. Patient is down about 6 kg since admission. 09-05-16 Patient is an 86 y/o male, well known to [facility] (Dr. Ward Carpenter) with history of chronic atrial fibrillation (not on anticoagulation given fall risk with [id number] score of 4), CHF (normal LVEF by echo), CAD s/p CABG, HTN, HLP , valvular heart disease (mod MR, TR, and AI), and GERD, who presented to [facility] ER with complaints of constipation. On telemetry, the patient's heart rate was irregular and tachycardic at the time of admission. No complaints of chest pains or pressure. No PND or orthopnea were voiced. Compliance with medical therapy has been good. Outpatient office note from Dr. Ward Carpenter from February [address] Mahesh Velazquez from June 2016 were reviewed today. The patient has not been on anticoagulation for some time given fall risk (and bleeding). Today, the patient is feeling much better after a combination of (a) having a bowel movement, and (b) diuresis. No chest pains or pressure. No shortness of breath, PND, or orthopnea. No fevers or chills. Weight has dropped about 4 kg since admission. In the ER, the patient was noted to have lower extremity swelling and mild dyspnea, but today, both these complaints have resolved. Plan: (1) No further cardiac work up is indicated at present (2) Maintain therapy on Toprol and Cardizem for rate control assistance of atrial fibrillation (3) Patient is not a candidate for anticoagulation above/beyond ASA therapy (4) Would consider GI evaluation (in the outpatient setting) given weight loss , diarrhea, and constipation (5) ASA therapy should be continued (6) Would have patient seen in the outpatient setting by Dr. Ward Carpenter ( patient's primary program therapist). Subjective: No cardiovascular complaints were voiced Reviewed/Discussed With: family, hospitalist, multidisciplinary team Time Spent With Patient: 20 minutes Objective: Vital Signs (8 Hrs) Temp Pulse Resp BP Pulse Ox 09/07/16 11:37 36.4 C 76 16 92/57 L 93 09/07/16 07:21 36.9 C 95 20 95/54 L 93 Intake/Output (24 Hrs) 09/06/16 09/07/16 09/08/16 05:59 05:59 05:59 Intake Total 895 465 Output Total 750 850 320 Balance 145 -385 -320 Intake: Oral (ml) 895 350 IV Infused (ml) 115 Furosemide 80 mg In D5w 115 50 ml @ 100 mls/hr IV BIDDIUR DALIA Rx#: [id number] Output: Urine (ml) 750 850 320 Catheter 300 Urinal 450 850 320 Other: Weight 66.7 kg 68.8 kg Intake Quantity Yes Sufficient Output Comment Bedside Commode difficulty eliminating Number of Voids Urinal 1 Number of Stools Bedside Commode 1 Result Diagrams: 09/04/16 03:58 09/07/16 03:30 Telemetry: atrial fibrillation with controlled ventricular response - Physical Exam Constitutional: WDWN, healthy appearing, no apparent distress Eyes: PERRL Ears, Nose, Mouth, Throat: moist mucous membranes Cardiovascular: systolic murmur, irregularly irregular Peripheral Pulses: 2+: dorsalis-pedis (R), dorsalis-pedis (L) Respiratory: clear to auscultate bilat, no crackles Gastrointestinal: normoactive bowel sounds Skin: no rashes, no edema Musculoskeletal: no muscular tenderness Neurologic: AAOx3, CN II-XII grossly intact Psychiatric: cooperative, interactive, following commands ICD10 Worksheet Patient Problems: Problems Problem Status Onset Chronic Disease Mgmt/Transitional Care Acute Pulmonary edema Acute Rapid atrial fibrillation Acute A-fib Acute Anemia Acute Anticoagulated Acute Anxiety Acute Failure to thrive Acute GI bleed Acute
--- NOTE | 2016-09-07 15:22 | HOSPPROG ---
Hospitalist Progress Note Assessment/Plan: # ACUTE DIASTOLIC CONGESTIVE HEART FAILURE with worsening MR on echo # ATRIAL FIBRILLATION (improved rate control) # HISTORY OF BYPASS SURGERY BUT NO CURRENT ANGINA ; EKG NOT DONE IN THE ER BUT TROPONIN NORMAL # POOR COMPLIANCE WITH LOW-SALT DIET # CHRONIC KIDNEY DISEASE # CONSTIPATION (resolved) PLANS: -will resume home dose of lasix -cont with bowel protocol dispo: pt is still too weak to return to the [facility] living. Will reassess functional status in the AM and consider SNF Objective: Vital Signs Temp Pulse Resp BP Pulse Ox 36.4 C 76 16 92/57 L 93 09/07/16 11:37 09/07/16 11:37 09/07/16 11:37 09/07/16 11:37 09/07/16 11:37 Laboratory Results 09/04/16 03:58 09/07/16 03:30 09/06/16 09/07/16 09/08/16 05:59 05:59 05:59 Intake Total 895 465 Output Total 750 850 320 Balance 145 -385 -320 ICD10 Worksheet Patient Problems: Problems Problem Status Onset Chronic Disease [facility]/Transitional Care Acute A-fib Acute Failure to thrive Acute Anxiety Acute Anticoagulated Acute GI bleed Acute Anemia Acute Rapid atrial fibrillation Acute Pulmonary edema Acute
[2016-09-07] MEDS: ATORVASTATIN CALCIUM 10 MG TAB PO SCH (20:15)
[2016-09-07] MEDS: CHOLECALCIFEROL VIT D3 2,000 UNITS TAB/CAP PO SCH (20:15)
[2016-09-07] MEDS: DILTIAZEM CD 180 MG CAP PO SCH (20:15)
[2016-09-08 04:28] LABS: ANION GAP 9 mEq/L (8-16); CALCIUM 8.5 mg/dL (8.5-10.4); CARBON DIOXIDE 31 mEq/l (22-31); CHLORIDE 92 mEq/L (97-110); GLOMERULAR FILTRATION RATE > 60; GLUCOSE 96 mg/dL (70-100); POTASSIUM 4.3 mEq/L (3.5-5.2); SODIUM 132 mEq/L (134-144)
[2016-09-08] MEDS ORDERED: FUROSEMIDE 80 MG TAB PO SCH (09:00)
[2016-09-08] MEDS: METOPROLOL SUCCINATE XR 50 MG TAB PO SCH (10:10)
[2016-09-08] MEDS: MULTIVITAMINS 1 EACH TAB PO SCH (10:10)
[2016-09-08] MEDS: ASPIRIN EC 81 MG TAB PO SCH (10:10)
[2016-09-08] MEDS: CITALOPRAM 20 MG TAB PO SCH (10:10)
[2016-09-08] MEDS: ENOXAPARIN 40 MG/0.4 ML SYR SC SCH (10:11)
--- NOTE | 2016-09-08 10:25 | PDDCSUM ---
Discharge Summary Discharge Summary: Dates of service 09/03-09/08/16 Discharge dx: # acute on chronic diastolic heart failure # VHD # constipation and stool incontinence # a trial fibrillation # CAD # CKD # HTN # HLD Consultations: cardiology Procedures performed: echo Hospital course by problem Assessment/Plan: # ACUTE DIASTOLIC CONGESTIVE HEART FAILURE with worsening MR on echo, mild volume overload on arrival that was improved with gentle diuresis. Otherwise no real cardiac complaints. Cardiology involved, no changes at this time # constipation: main concern of patient that led to hospitalization, was also c/ o stool incontinence. Had BM here after laxatives, led to more incontinence. No red flag sxs, normal abd exam. F/u with PCP. consider addition of fiber if sxs continue. # ATRIAL FIBRILLATION (improved rate control)--continued on op meds. # CAD: with hx of CABG, no cardiac sxs, no ecg changes, no elevation in trop. Echo unchanged other than progressive MR. # CHRONIC KIDNEY DISEASE--stable # deconditioning/FTT: patient quite weak and concerned about going home, feels that given his intermittent constipation he should remain in hospital. Explained that this is not the right place for subacute issues like constipation and incontinence. Will dc to snf. Dc to SNF f/u with PCP, cardiology > 35 minutes spent in dc of patient, more than half in coordination of care and counseling of patient and family
--- NOTE | 2016-09-08 10:25 | PDIAF ---
- Diagnosis Diagnosis: acute diastolic heart failure Code Status: Full Code - Medication Management Discharge Medications: Medications to Continue on Transfer Cholecalciferol Vit D3 [Vitamin D3 (*)] 2,000 units PO HS 09/03/16 [Last Taken 09/02/16] Citalopram [CeleXA 20 MG] 20 mg PO DAILY 09/03/16 [Last Taken 09/02/16] Diltiazem HCl [Diltiazem 24Hr Cd] 180 mg PO HS 09/03/16 [Last Taken 09/02/16] Furosemide [Lasix 80 MG (*)] 80 mg PO DAILY 09/03/16 [Last Taken 09/03/16] Metoprolol Succinate Xr [Toprol Xl 50 mg (*)] 50 mg PO DAILY 09/03/16 [Last Taken 09/03/16] Multivitamins [Multivitamin (*)] 1 each PO DAILY 09/03/16 [Last Taken Unknown] Simvastatin [Zocor] 20 mg PO HS 09/03/16 [Last Taken 09/02/16] Spironolactone [Aldactone 25 MG (*)] 25 mg PO DAILY@1200 09/03/16 [Last Taken ] Aspirin EC [Aspirin EC 81 mg (*)] 81 mg PO DAILY #0 tab 09/07/16 [Last Taken Unknown] Polyethylene Glycol 3350 [Miralax 17 gm (*)] 17 gm PO DAILY PRN #0 pkt 09/07/16 [Last Taken Unknown] Sennosides/Docusate Sodium [Senokot-S] 1 tab PO BID PRN #0 tab 09/07/16 [Last Taken Unknown] Discharge Medications: Refer to the Discharge Home Medication list for PRN reason. - Orders Services needed: Home Care, Registered Nurse, Certified Caustic Purification Operator, Physical Therapy, Occupational Therapy Home Care Face to Face: I certify that this patient was under my care and that I had the required [id number] encounter meeting the encounter requirements on the discharge day. My findings support the fact that the patient is homebound as defined in CMS Chapter 7 Medicare Benefits Manual 30.1.1, The condition of the patient is such that there exists a normal inability to leave home and consequently, leaving home would require a considerable and taxing effort. Diet Recommendation: sodium restricted Diet Texture: Regular Texture Diet Weigh Patient: weekly - Follow Up Care Current Providers and Referrals: Angelo Fields MD [Medical Doctor] - Jose Manuel Byrne MD [Primary Care Provider] - As per Instructions Je Carpenter MD [Medical Doctor] - As per Instructions
--- NOTE | 2016-09-08 10:58 | PDIAF ---
- Diagnosis Diagnosis: acute diastolic heart failure Code Status: Full Code - Medication Management Discharge Medications: Medications to Continue on Transfer Cholecalciferol Vit D3 [Vitamin D3 (*)] 2,000 units PO HS 09/03/16 [Last Taken 09/02/16] Citalopram [CeleXA 20 MG] 20 mg PO DAILY 09/03/16 [Last Taken 09/02/16] Diltiazem HCl [Diltiazem 24Hr Cd] 180 mg PO HS 09/03/16 [Last Taken 09/02/16] Furosemide [Lasix 80 MG (*)] 80 mg PO DAILY 09/03/16 [Last Taken 09/03/16] Metoprolol Succinate Xr [Toprol Xl 50 mg (*)] 50 mg PO DAILY 09/03/16 [Last Taken 09/03/16] Multivitamins [Multivitamin (*)] 1 each PO DAILY 09/03/16 [Last Taken Unknown] Simvastatin [Zocor] 20 mg PO HS 09/03/16 [Last Taken 09/02/16] Spironolactone [Aldactone 25 MG (*)] 25 mg PO DAILY@1200 09/03/16 [Last Taken ] Aspirin EC [Aspirin EC 81 mg (*)] 81 mg PO DAILY #0 tab 09/07/16 [Last Taken Unknown] Polyethylene Glycol 3350 [Miralax 17 gm (*)] 17 gm PO DAILY PRN #0 pkt 09/07/16 [Last Taken Unknown] Sennosides/Docusate Sodium [Senokot-S] 1 tab PO BID PRN #0 tab 09/07/16 [Last Taken Unknown] Discharge Medications: Refer to the Discharge Home Medication list for PRN reason. - Orders Services needed: Registered Nurse, Certified Cargo Broker, Physical Therapy, Occupational Therapy Diet Recommendation: sodium restricted Diet Texture: Regular Texture Diet Weigh Patient: weekly - Follow Up Care Current Providers and Referrals: Angelo Fields MD [Medical Doctor] - Jose Manuel Byrne MD [Primary Care Provider] - As per Instructions Je Carpenter MD [Medical Doctor] - As per Instructions
[2016-09-08 11:14] VITALS: BP 96/55; PULSE 87; RESP 14; TEMP 98; O2SAT 90
[2016-09-08] MEDS: SPIRONOLACTONE 25 MG TAB PO SCH (13:07)
== END 2016-09-08 14:25 | DRG 293 ==
LOC: F2W 19:52
PROVIDERS: ADMIT Internal Medicine; ATTEND Family Medicine
DX: I50.33 Acute on chronic diastolic (congestive) heart failure (principal); I34.0 Nonrheumatic mitral (valve) insufficiency; I48.91 Unspecified atrial fibrillation; N18.9 Chronic kidney disease, unspecified; I25.10 Atherosclerotic heart disease of native coronary artery without angina pectoris; K59.00 Constipation, unspecified; K21.9 Gastro-esophageal reflux disease without esophagitis; E78.5 Hyperlipidemia, unspecified; Z95.1 Presence of aortocoronary bypass graft; Z99.81 Dependence on supplemental oxygen
CPT/HCPCS: 96365; 96366; 97110-GP; 97116-GP; 97162-GP; 97165-GO; 97530-GO; 97530-GP; 97535-GO; G8978-GP-CK; G8979-GP-CI; G8988-GO-CK; G8989-GO-CJ; J1650

== ENCOUNTER → 2016-10-07 | Outpatient (CLI) | payer OTHER | LOC: BHFA 15:30 | PROVIDERS: ATTEND Internal Medicine Cardiovascular Disease | DX: I48.91 Unspecified atrial fibrillation (principal) ==

== ENCOUNTER 2016-11-09 23:00 | Emergency (ER) | payer OTHER ==
[2016-11-09 23:14] VITALS: TEMP 98.1
--- NOTE | 2016-11-10 00:52 | EDPHY ---
[facility] R [facility] Time Seen by Provider: 11/09/16 23:22 HPI/ROS: Chief Complaint: Mechanical fall, right leg pain HPI: 86-year-old male coming from independent living where he had a mechanical fall after standing up and getting his feet caught. He sustained an injury to his right jack, he also sustained an abrasion to his head. He denies loss of consciousness. Denies headache. No neck pain numbness or weakness. He has full recollection of events. Is currently complaining of right leg pain only. Patient does have a history of atrial fibrillation. He is not on anticoagulation. He does take a baby aspirin every day. ROS: 10 point Review of Systems is negative except as noted in the HPI. PMH: Atrial fibrillation, coronary artery disease Social History: No smoking, occasional alcohol, no recreational drug use Family History: non-contributory Physical Exam: Gen: Awake, Alert, No Distress HEENT: Very superficial abrasion to his forehead. There is no tenderness. No step-offs. No hematoma Nose: no rhinorrhea Eyes: PERRLA, EOMI Mouth: Moist mucosa Neck: Supple, nontender, full range of motion without pain Chest: nontender, lungs clear to auscultation Heart: S1, S2 normal, no murmur Abd: Soft, non-tender, no guarding Back: no CVA tenderness, no midline tenderness Ext: no edema, he is a large hematoma on the medial aspect of his right jack. There is no bony tenderness. He has full range of motion of his knee hip and ankle without any pain. Sensations intact distally. 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, hypertension, hyperlipidemia, GERD, cataract surgery, depression, falls, r cea, cardiac stents, cardioversion x2, home o2 at noc 3L, DAYTIME 5L, ARTHRITIS - Social History Smoking Status: Never smoked Constitutional: Initial Vital Signs Temperature (C) 36.7 C 11/09/16 23:11 Heart Rate 84 11/09/16 23:11 Respiratory Rate 16 11/09/16 23:11 Blood Pressure 114/85 H 11/09/16 23:11 O2 Sat (%) 90 L 11/09/16 23:11 O2 Delivery Mode Room Air O2 (L/minute) 2 Allergies/Adverse Reactions: acetaminophen [From Percocet] Allergy (Verified 09/24/15 10:04) amiodarone Allergy (Verified 10/24/15 21:01) Anaphylaxis hydrocodone bitartrate [From Vicodin] Allergy (Verified 09/24/15 10:04) oxycodone HCl [From Percocet] Allergy (Verified 09/24/15 10:04) Home Medications: Medication Instructions Recorded Cholecalciferol Vit D3 [Vitamin D3 2,000 units PO HS 09/03/16 (*)] Citalopram [CeleXA 20 MG] 20 mg PO DAILY 09/03/16 Diltiazem HCl [Diltiazem 24Hr Cd] 180 mg PO HS 09/03/16 Furosemide [Lasix 80 MG (*)] 80 mg PO DAILY 09/03/16 Metoprolol Succinate Xr [Toprol Xl 50 mg PO DAILY 09/03/16 50 mg (*)] Multivitamins [Multivitamin (*)] 1 each PO DAILY 09/03/16 Simvastatin [Zocor] 20 mg PO HS 09/03/16 Spironolactone [Aldactone 25 MG 25 mg PO DAILY@1200 09/03/16 (*)] Aspirin EC [Aspirin EC 81 mg (*)] 81 mg PO DAILY #0 tab 09/07/16 Polyethylene Glycol 3350 [Miralax 17 gm PO DAILY PRN #0 pkt 09/07/16 17 gm (*)] Sennosides/Docusate Sodium 1 tab PO BID PRN #0 tab 09/07/16 [Senokot-S] Medical Decision Making - Diagnostics Imaging Results: Imaging Impressions Tibia/Fibula X-Ray 11/09/16 23:31 Impression: 1. Negative for fracture. 2. Prominent soft tissue swelling in the medial and posterior upper calf presumably a hematoma. Imaging: I viewed and interpreted images myself ED Course/Re-evaluation: Right leg x-rays negative. Patient had a pressure dressing placed over the hematoma. He was observed in the emergency department. He has never had any headache. Is currently without any other complaint. He ambulated with his walker without difficulty emergency department. His vital signs remain normal in his mental status at its baseline. He will be discharged home with his son. He will follow up with primary care physician in 2-3 days. He will certainly return emergency department for increasing headache, nausea vomiting, numbness, weakness, or any other concerns. [id number]-old male status post fall. She has not have any symptoms suggestive of a head injury. He is not anticoagulated. I believe the likelihood of the intracranial bleed is very low as he is asymptomatic and is not anticoagulated and had no loss of consciousness. There is no indication for CT scanning at this time. Will return for any worsening symptoms or concerns. Departure - Departure Disposition: Home, Routine, Self-Care Clinical Impression: Hematoma, Abrasion Condition: Good Instructions: Abrasion (ED), Hematoma (ED) Additional Instructions: Follow up with your primary care physician in 2-3 days to recheck the hematoma on your leg. Leave the dressing in place until your seen by your primary care physician. Return to the emergency department if he developed a headache, nausea or vomiting, dizziness, numbness, weakness, uncontrolled pain, or any other concerns. Referrals: Jose Manuel Byrne MD [Primary Care Provider] - As per Instructions
[2016-11-10] MEDS ORDERED: ACETAMINOPHEN 325 MG TAB ONE (01:15)
[2016-11-10] MEDS ORDERED: ACETAMINOPHEN 325 MG TAB PO ONE (01:16)
[2016-11-10 01:45] VITALS: BP 112/77; PULSE 88; RESP 18; O2SAT 94
== END 2016-11-10 01:46 | disposition home or self-care (01) ==
LOC: EDUNIT#
DX: S80.11XA Contusion of right lower leg, initial encounter (principal); S00.81XA Abrasion of other part of head, initial encounter; I25.810 Atherosclerosis of coronary artery bypass graft(s) without angina pectoris; I11.0 Hypertensive heart disease with heart failure; I50.9 Heart failure, unspecified; Z95.5 Presence of coronary angioplasty implant and graft; Z79.82 Long term (current) use of aspirin; W18.39XA Other fall on same level, initial encounter